=== PATIENT | male | born 2005 | race Caucasian/White ===

== ENCOUNTER 2024-07-02 13:37 | Emergency (ER) | payer BC, OTHER ==
[~2024-07-02] VITALS: Ht 180.3 cm; Wt 72.6 kg
[2024-07-02 14:35] LABS: BASOPHILS % (AUTO) 0.6 % (0.0-2.0); EOSINOPHILS % (AUTO) 0.3 % (0.0-7.0); HEMATOCRIT 41.6 % (36.7-47.1); HEMOGLOBIN 13.6 g/dL (12.5-16.3); LYMPHOCYTES # (AUTO) 2.1 K/uL (0.8-4.8); LYMPHOCYTES % (AUTO) 29.1 % (20.5-74.5); MEAN CORPUSCULAR HEMOGLOBIN 25.7 uug (23.8-33.4); MEAN CORPUSCULAR HGB CONC 33 g/dL (32.5-36.3); MEAN CORPUSCULAR VOLUME 78.9 fL (73.0-96.2); MONOCYTES # (AUTO) 0.7 K/uL (0.1-1.30); MONOCYTES % (AUTO) 9.6 % (0-11); NEUTROPHILS # (AUTO) 4.4 K/uL (1.8-8.9); NEUTROPHILS % (AUTO) 60.4 % (31.5-64.5); PLATELET COUNT (AUTO) 272 K/uL (152-348); RED BLOOD CELL COUNT(AUTO) 5.28 MIL/uL (4.06-5.63); RED CELL DISTRIBUTION WIDTH 15.6 % (12.1-16.2); WHITE BLOOD COUNT (AUTO) 7.3 K/uL (3.6-10.2)
[2024-07-02 14:37] LABS: *BILIRUBIN,URIN NEGATIVE (NEGATIVE); *CLARITY,URINE CLEAR (CLEAR); *COLOR,URINE YELLOW (YELLOW); *KETONES,URINE NEGATIVE (NEGATIVE); *PROTEIN,URINE NEGATIVE (NEGATIVE); *UROBILINOGEN,URINE 0.2 E.U./dl (NORMAL); LEUKOCYTE ESTERASE ,URINE NEGATIVE (NEGATIVE); NITRITE, URINE NEGATIVE (NEGATIVE); UGLUCOSE NEGATIVE (NEGATIVE)
[2024-07-02 14:39] LABS: DIFFERENTIAL COMMENT 1
[2024-07-02 14:39] LABS: *BLOOD, URINE TRACE (NEGATIVE)
[2024-07-02 14:41] LABS: WBC,URINE 0-3 /HPF (0-3)
[2024-07-02 14:42] LABS: BACTERIA,URINE FEW /HPF (NONE SEEN)
[2024-07-02 14:47] LABS: ETHANOL < 3 MG/DL (0-10)
[2024-07-02 14:51] LABS: ALANINE AMINOTRANSFERASE 37 U/L (16-63); ALBUMIN 4.2 g/dL (3.4-5.0); ALKALINE PHOSPHATASE 78 U/L (50-136); ASPARTATE AMINOTRANSFERASE 21 U/L (15-37); BILIRUBIN,DIRECT 0.3 mg/dL (0.0-0.2); CALCIUM 9.3 mg/dL (8.5-10.1); CARBON DIOXIDE 28 mmol/L (21-32); CHLORIDE 98 mmol/L (98-107); CREATININE 0.7 mg/dL (0.6-1.3); GLUCOSE 77 mg/dL (74-106); SODIUM SERUM 136 mmol/L (136-145); TOTAL PROTEIN, SERUM 7.3 g/dL (6.4-8.2); UREA NITROGEN, BLOOD 9 mg/dL (7-18)
[2024-07-02 14:54] LABS: *AMPHETAMINE, URINE POSITIVE (NEGATIVE); *BARBITURATE, URINE NEGATIVE (NEGATIVE); *BENZODIAZEPINE, URINE NEGATIVE (NEGATIVE); *CANNABINOID, URINE NEGATIVE (NEGATIVE); *COCCAINE, URINE NEGATIVE (NEGATIVE); *OPIATE, URINE NEGATIVE (NEGATIVE); *PHENCYCLIDINE SCREEN,URINE NEGATIVE (NEGATIVE); FENTANYL, URINE NEGATIVE (NEGATIVE)
[2024-07-02] MEDS ORDERED: CYANOCOBALAMIN 1000 MCG/ML VIAL ONE (16:50)
[2024-07-02] MEDS ORDERED: POTASSIUM BICARBONATE/CIT AC 25 MEQ TABLET.EFF ONE (16:50)
[2024-07-02] MEDS: POTASSIUM BICARBONATE/CIT AC 25 MEQ TABLET.EFF PO ONE (16:56)
[2024-07-02] MEDS: CYANOCOBALAMIN 1000 MCG/ML VIAL IM ONE (17:00)
[2024-07-02] MEDS ORDERED: CYAN-10 IM (17:22)
[2024-07-02 17:30] VITALS: O2SAT 99
== END 2024-07-02 17:32 | disposition home or self-care (01) ==
LOC: ER 13:37 → EDBD 13:37 → ER 17:32
DX: F22 Delusional disorders (principal); F15.10 Other stimulant abuse, uncomplicated; E53.8 Deficiency of other specified B group vitamins; Z79.899 Other long term (current) drug therapy
CPT/HCPCS: 80076; 80048; 81001; 82607; 85025; 36415; 93005; 99284; 96372; 80320; 80307; J3420; A4606; A4663; G0480